=== PATIENT | male | born 1955 | race Caucasian/White ===

== ENCOUNTER 2019-08-15 14:25 | Emergency (ER) | payer BC, SELFPAY ==
[2019-08-15 14:28] VITALS: BP 100/63; PULSE 84; RESP 16; TEMP 37.2; O2SAT 94; BMI 27.3
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
--- NOTE | 2019-08-15 15:11 | EKG12_ITS ---
Test Reason : Blood Pressure : / mmHG Vent. Rate : 086 BPM Atrial Rate : 086 BPM P-R Int : 152 ms QRS Dur : 094 ms QT Int : 370 ms P-R-T Axes : 063 035 049 degrees QTc Int : 442 ms Normal sinus rhythm Normal ECG Confirmed by CHELSI GALVEZ MD ([id number]), book or script editor VINITA MOREIRA ([id number] on 08/18/2019 1:35:14 PM Referred By: CARLOS Confirmed By:CHELSI GALVEZ MD
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
[2019-08-15 15:30] LABS: Absolute Lymphocyte Count 1.86 X10^3/uL (0.83-4.51); Basophil# 0.02 X10^3/uL; Basophil% 0.1 % (0-1); Eosinophil# 0.03 X10^3/uL; Eosinophils% 0.2 % (0-5); Hematocrit 43.8 % (40-54); Hemoglobin 14.8 g/dL (13.0-16.5); Lymphocyte # 1.86 X10^3/ul (4.0); Lymphocyte % 12.5 % (19-41); Mean Corp Hgb Conc 33.8 g/dL (32-36); Mean Corpuscular Hgb 32.1 pg (27.0-32.0); Mean Platelet Vol. 9.1 fl (6.2-12.0); Monocyte# 0.82 X10^3/uL; Monocyte% 5.5 % (0-10); NRBC Flagged by Analyzer 0 % (0-5); Neutrophil # 11.99 X10^3/uL (2.7-7.7); Neutrophil % 80.5 % (47-70); Platelet Count 285 K/mm3 (150-450); RBC Distribution Width CV 12.3 % (11.6-14.6); RBC Distribution Width SD 42.7 fl (35.1-43.9); Red Blood Count 4.61 M/mm3 (4.6-6.2); White Blood Count 14.9 K/mm3 (4.4-11.0)
[2019-08-15] MEDS: 0.9% Normal Saline 1,000 ML 999 ML IV (15:32)
[2019-08-15 15:52] LABS: Anion Gap 5 (5-15); BUN 20 mg/dL (7-18); Chloride 107 mmol/L (98-107); Creatinine, Serum 1.11 mg/dL (0.70-1.30); EST Glomerular Filtration Rate 71 mL/min (>60); Est Glom Filt Rate - Afr Amer 86 mL/min (>60); Estimated Creatinine Clearance 78.98 ml/min; Glucose 101 mg/dL (74-106); Potassium 4.2 mmol/L (3.5-5.1); Sodium Level 141 mmol/L (136-145)
[2019-08-15 15:59] LABS: Alcohol, Blood (Medical)-Serum < 3.0 mg/dL
[2019-08-15 16:27] VITALS: BP 129/78; PULSE 82; RESP 16; O2SAT 96
[2019-08-15] MEDS: HYDROcodone Bitartrate/Apap 5/325 Tablet PO (16:40)
[2019-08-15 16:53] LABS: Amphetamine Urine VISTA NEGATIVE (<1000 ng/mL); Barbiturate Urine VISTA NEGATIVE (< 200 ng/mL); Benzodiazepine Urine VISTA NEGATIVE (< 200 ng/mL); Cocaine Urine VISTA NEGATIVE (< 300 ng/mL); Ecstacy Urine VISTA NEGATIVE (< 500 ng/mL); Methadone Urine VISTA NEGATIVE (< 300 ng/mL); PCP Urine VISTA NEGATIVE (< 25 ng/mL); THC Urine VISTA NEGATIVE (< 50 ng/mL); Vista UDS pH Range 5
[2019-08-15 18:00] VITALS: BP 107/73; PULSE 105; RESP 16; TEMP 36.9; O2SAT 96
[2019-08-15 20:06] VITALS: BP 74/53; PULSE 104; RESP 14; O2SAT 93
[2019-08-15] MEDS: 0.9% Normal Saline 1,000 ML IV.SOLN. 1000 ML IV (20:20)
[2019-08-15 20:25] VITALS: BP 83/58; PULSE 104; RESP 14; O2SAT 93
== END 2019-08-15 20:30 | disposition short-term general hospital (02) ==
PROVIDERS: Emergency Provider Emergency Medicine
DX: S22.20XA Unspecified fracture of sternum, initial encounter for closed fracture (principal); S20.219A Contusion of unspecified front wall of thorax, initial encounter; R91.8 Other nonspecific abnormal finding of lung field; Z72.0 Tobacco use; V47.0XXA Car driver injured in collision with fixed or stationary object in nontraffic accident, initial encounter; Y93.I9 Activity, other involving external motion; Y92.410 Unspecified street and highway as the place of occurrence of the external cause; Y99.8 Other external cause status
CPT/HCPCS: 70450; 71250; 72125; 80048; 80307; 80320; 84484; 85025; 93005; 96360; 99285; J7030; A4216; G0480